=== PATIENT | female | born 2000 | race Caucasian/White ===

== ENCOUNTER → 2021-01-31 03:04 | Outpatient (CLI) | payer OTHER, SELFPAY ==
[2021-01-31 19:39] LABS: SARS-CoV-2 RNA PCR Negative
== END ==
PROVIDERS: PCP Family Medicine; Visit Provider Physician Assistant
DX: Z20.822 Contact with and (suspected) exposure to COVID-19 (principal)
CPT/HCPCS: C9803; U0003; U0005

== ENCOUNTER 2021-01-31 09:53 | Inpatient (IN) | payer OTHER, SELFPAY ==
--- NOTE | ~2021-01-31 | US_ITS ---
EXAMINATION: US renal BI DATE: 02/01/2021 07:53 INDICATION: Acute kidney injury. TECHNIQUE: Multiple ultrasound grayscale images of the kidneys were obtained. COMPARISON: CT abdomen and pelvis 01/31/2021 FINDINGS: The right kidney measures 13.1 x 6.0 x 5.0 cm. The left kidney measures 12.7 x 6.7 x 6.3 cm. The kidn eys demonstrate normal parenchymal echogenicity. There is no hydronephrosis. The bladder is normal. IMPRESSION: 1. Normal kidneys. No hydronephrosis. Reviewed, dictated and finalized at location A. CONTROL OPERATOR
--- NOTE | ~2021-01-31 | XR_ITS ---
EXAMINATION: XR chest 2V 02/01/2021 11:54 INDICATION: Renal failure PROCEDURE: 2 view chest COMPARISON: No prior studies for comparison. FINDINGS: The lungs are clear. The cardiomediastinal silhouette is within normal limits. There are no pleural effusions. There is no pneumothorax suspected. IMPRESSION: 1: NO ACUTE CARDIOPULMONARY DISEASE. Reviewed, dictated and finalized at location A. ENT RELATIONS COORDINATOR
--- NOTE | ~2021-01-31 | CT_ITS ---
EXAMINATION: CT abdomen pelvis wo con DATE: 01/31/2021 18:17 INDICATION: Kidney stone. Abdominal pain. TECHNIQUE: Computed tomography (CT) of the abdomen and pelvis was performed without intravenous contr ast. Automated exposure control and iterative reconstruction technique were employed. The dose-length product was 272.40 mGy-cm. COMPARISON: 01/10/2015 FINDINGS: Lung bases are clear. Heart size is normal. No pericardial or pleural effusion. Focal hepatic steatos is at the ligamentum teres. Gallbladder, spleen, pancreas, bilateral adrenal glands and kidneys are n ormal. Bowels including the appendix are normal. Bladder, anteverted uterus and bilateral adnexa are normal. Small amount of likely physiologic free fluid in the cul-de-sac. No abscess or free intraperi toneal gas. No pathologically enlarged abdominal or pelvic lymphadenopathy. Mild lumbosacral spondylo sis. IMPRESSION: 1. No acute intra-abdominal/pelvic process. Reviewed, dictated and finalized at location . ENT PRESSER
--- NOTE | ~2021-01-31 | US_ITS ---
EXAMINATION: US biopsy renal DATE: 02/01/2021 13:53 INDICATION: Acute kidney injury. Proteinuria. Hematuria. TECHNIQUE: The procedure including the risks, benefits, and alternatives was discussed with the patie nt. Risks discussed included bleeding and infection. The patient understood the risks and agreed to p roceed. A timeout was performed to verify the patient's name, date of , and procedure to be p erformed. The skin overlying the left kidney was prepped and draped in usual sterile fashion. Anest hetic was administered with 1% lidocaine subcutaneously. An 18 gauge core biopsy needle was then use d to obtain 6 core biopsy specimens under continuous sonographic guidance. The entry site was cleaned and dressed. There were no immediate complications. FINDINGS: Ultrasound images demonstrate the needle in the kidney. IMPRESSION: 1. Ultrasound-guided random left kidney core needle biopsy. Reviewed, dictated and finalized at location A. ARCHITECT
[2021-01-31 10:00] VITALS: BP 118/82; PULSE 88; RESP 18; TEMP 36.5; O2SAT 100
[2021-01-31 13:56] VITALS: BP 143/84; PULSE 87; RESP 17; O2SAT 99
[2021-01-31 17:32] VITALS: BP 131/78; PULSE 92; RESP 18; TEMP 36.3; O2SAT 100
[2021-01-31 18:16] LABS: Basophils Percent Auto 0.2 % (0.2-1.2); Eosinophils Absolute Auto 0.1 K/mm3 (0-0.3); Eosinophils Percent Auto 0.7 % (0-4.4); Hematocrit 39.2 % (37.0-47.0); Hemoglobin 13.5 g/dL (12.0-15.0); Immature Granulocyte Absolute 0.02 K/mm3 (0.00-0.031); Immature Granulocyte Percent A 0.2 % (0-0.5); Lymphocytes Absolute Auto 1.12 K/mm3 (0.9-3.2); Mean Corpuscular HGB Conc 34.4 g/dl (32-36); Mean Corpuscular Hemoglobin 32.1 pg (26-34); Mean Corpuscular Volume 93.1 fl (80-100); Mean Platelet Volume 10.3 fl (7.4-10.4); Monocytes Absolute Auto 0.9 K/mm3 (0.1-0.6); Monocytes Percent Auto 10.3 % (2.6-8.5); Neutrophils Absolute Auto 6.5 K/mm3 (1.3-6.7); Neutrophils Percent Auto 75.6 % (45.5-73.1); Platelet Count Result 259 k/mm3 (150-375); Red Blood Count 4.21 M/mm3 (4.2-5.4); White Blood Count 8.6 K/mm3 (4.5-10.0)
[2021-01-31 18:20] LABS: Add Urine Microscopic? YES; Appearance Urine Clear (Clear); Bilirubin Urine Negative (Negative); Blood Urine 1+ (Negative); Color Urine Straw (Yellow); Glucose Urine UA Negative (Negative); Ketones Urine Negative (Negative); Leukocyte Esterase Ur Negative LEU/UL (Negative); Mucus Urine Rare /lpf; Nitrate Urine Negative (Negative); Protein Urine 2+ mg/dL (Negative); RBC Urine 0-2 /hpf (0-2); Squamous Epithelial Cell Urine Occasional /hpf (Few); Urobilinogen Urine Negative mg/dL (<2.0); WBC Urine 0-3 /hpf
[2021-01-31 18:23] LABS: Specific Grav Ur 1.003 (1.001-1.035)
[2021-01-31] MEDS: SODIUM CHLORIDE 0.9% IV 1,000 ML 999 ML IV CONT (18:41)
[2021-01-31] MEDS: MORPHINE SULFATE (*CRX) 2 MG/ML INJ IV PUSH (20:18)
[2021-01-31] MEDS: SODIUM CHLORIDE 0.9% IV 1,000 ML 150 ML IV CONT (21:44)
[2021-01-31 21:52] LABS: Alanine Aminotransferase 16 U/L (4-35); Albumin Level 4.4 g/dL (3.7-5.6); Alkaline Phosphatase 47 U/L (45-116); Anion Gap 11 mmol/L (8-16); Aspartate Amino Transferase 27 U/L (14-36); Bilirubin,Total 1.1 mg/dL (0.2-1.3); Blood Urea Nitrogen 30 mg/dL (8-21); Calcium 9.3 mg/dL (8.9-10.7); Carbon Dioxide 23 mmol/L (22-30); Chloride 99 mmol/L (98-107); Estimated CRCL calculation 18 ml/min; Estimated Glomerular Filt Rate 12; Glucose 85 mg/dL (65-110); Potassium 3.6 mmol/L (3.4-5.0); Sodium 133 mmol/L (134-143)
[2021-01-31 22:20] LABS: Estimated CRCL calculation 19 ml/min; Estimated Glomerular Filt Rate 13
[2021-01-31 22:29] VITALS: BP 111/59; PULSE 88; RESP 16; O2SAT 100
--- NOTE | 2021-01-31 22:33 | ED.GENADULT ---
HPI - General Adult General Chief complaint: Abdominal Pain Stated complaint: acute kidney injury Time Seen by Provider: 01/31/21 17:37 Source: patient Limitations: no limitations History of Present Illness HPI narrative: 20-year-old with no major medical problems was sent by her primary doctor for acute kidney injury. Patient states that for past 2 days she is been having intermittent abdominal pain had an outpatient labs which showed elevated creatinine. She was told to go to the emergency room. Patient denied any significant nausea or vomiting or diarrhea. She denies any previous history of kidney problems. No history of kidney stones. Onset (ago): day(s) (1) Location: abdomen Radiation: non-radiation Severity: mild Quality: aching Pain Consistency: constant Relieving factors: none Related Data Allergies Allergy/AdvReac Type Severity Reaction Status Date / Time No Known Allergies Allergy Mild Verified 01/31/21 17:37 Review of Systems Review of Systems: All systems reviewed & are unremarkable except as noted in HPI and below Constitutional: Constitutional: Reports no additional constitutional complaints Eyes: Eyes: Reports no additional eye complaints ENT: Reports system reviewed and no additional complaints, except as documented Cardiovascular: Cardiovascular: Reports no additional cardiovascular complaints Respiratory: Respiratory: Reports no additional respiratory complaints Gastrointestinal: Gastrointestinal: Reports as per HPI Musculoskeletal: Musculoskeletal: Reports no additional musculoskeletal complaints Integumentary/Breasts: Skin/Breast: Reports system reviewed and no additional complaints, except as docu Neurologic: Reports system reviewed and no additional complaints, except as documented Psychiatric: Psychiatric: Reports no additional psychiatric complaints PMFSH Past Medical History Medical History Hx of pancreatitis Surgical History Surgical History No significant past surgical history Family History Family History Mother Polycystic kidney disease Grandparent Polycystic kidney disease Heart valve problem Social History Social History Smoking status: Never smoker Alcohol intake: never Substance use: never Substance use type: does not use Exam Narrative: GENERAL: Well-appearing, well-nourished, and in no acute distress. HEAD: Normocephalic, atraumatic. EYES: PERRLA and EOMI.. NECK: Supple. CHEST: Clear to auscultation. No respiratory distress. HEART: Regular rate and rhythm. No murmur heard. Normal peripheral pulses. ABDOMEN: Soft, nontender, nondistended, normal active bowel sounds. EXTREMITIES: Normal range of motion. No edema. SKIN: Warm, dry, no rash. NEURO: No focal deficits. Alert and oriented x3. PSYCH: Normal mood and affect. Course Course Emergency Course: Patient was hydrated with normal saline. Patient repeat creatinine x2 was 4.5. Discussed with Dr. Corbin will see the patient in consult. Discussed with Dr. Ramos agreed to admit the patient. Vital Signs Vital signs: Vital Signs Temperature 36.5 C 01/31/21 10:00 Pulse Rate 88 01/31/21 10:00 Respiratory Rate 18 01/31/21 10:00 Blood Pressure 118/82 01/31/21 10:00 Pulse Oximetry 100 01/31/21 10:00 Temperature 36.3 C L 01/31/21 17:32 Pulse Rate 92 01/31/21 17:32 Respiratory Rate 18 01/31/21 17:32 Blood Pressure 131/78 01/31/21 17:32 Pulse Oximetry 100 01/31/21 17:32 Medical Decision Making Vital Signs Vital Signs: Vital Signs Temperature 36.5 C 01/31/21 10:00 Pulse Rate 88 01/31/21 10:00 Respiratory Rate 18 01/31/21 10:00 Blood Pressure 118/82 01/31/21 10:00 Pulse Oximetry 100 01/31/21 10:00 Temperature 3
[2021-01-31 23:40] LABS: Creatinine Urine 57.6 mg/dL
--- NOTE | 2021-01-31 23:42 | PM.IMHP ---
H&P: HPI History of Present Illness Date/Time: 01/31/21 23:42 Chief Complaint: Abnormal lab value Narrative: This is a 20-year-old female with known significant past medical history. Patient presented to emergency room after outpatient lab work showed a creatinine of 1.9 BUN of 13 patient was advised to present to the emergency room. Repeat lab work in the emergency room showed a creatinine of 4.5 and a BUN of 30. Patient was seen and evaluated in the outpatient setting for lower abdominal pain concomitantly patient is having her menstruation. Patient has been in her usual state of health prior to these denies any shortness of breath, cough, sputum production, fevers, rigors, chills, nausea, vomiting, had 1 episode of diarrhea but states that that is common for her while having her menstruation, no hemoptysis, no epistaxis, no sinus infection, no sore throat, no ear ache ,no lower extremity swelling or any swelling, no weight loss or weight gain, patient had been taking Tylenol and ibuprofen over the weekend. In emergency room patient's vitals temp of 98? pulse of 120 blood pressure 118/476. A CT of abdomen and pelvis did not show any acute abnormalities. Decision has been made to admit the patient for further evaluation, management and treatment. Review of Systems Review of Systems: Abnormal lab work patient presented to outpatient setting due to lower abdominal pain with her period. Constitutional: Constitutional: Denies chills, Denies fatigue, Denies fever(s), Denies lethargy, Denies malaise, Denies night sweats, Denies poor appetite, Denies weakness, Denies weight gain and Denies weight loss Eyes: Eyes: Denies change in vision ENT: Denies dysphagia, Denies epistaxis, Denies nasal congestion, Denies nasal discharge, Denies nasal obstruction, Denies neck pain, Denies odynophagia, Denies sinus pain and Denies sore throat Cardiovascular: Cardiovascular: Denies syncope, Denies pedal edema, Denies edema, Denies irregular heart rhythm, Denies leg edema, Denies lightheadedness, Denies radiating jaw, neck or arm pain, Denies palpitations, Denies dyspnea on exertion, Denies orthopnea and Denies paroxysmal nocturnal dyspnea Respiratory: Respiratory: Denies chest congestion, Denies cough, Denies hemoptysis, Denies excessive phlegm production, Denies pain on inspiration, Denies dyspnea, Denies dyspnea on exertion and Denies wheezing Gastrointestinal: Gastrointestinal: Reports abdominal pain, Denies dyspepsia, Denies heartburn, Denies diarrhea, Denies nausea and Denies vomiting Genitourinary: Genitourinary: Reports no additional female genitourinary complaints and Reports as per HPI Musculoskeletal: Musculoskeletal: Denies arthralgias, Denies joint swelling and Denies muscle weakness Integumentary/Breasts: Skin/Breast: Denies non-healing lesions, Denies photosensitivity and Denies rash Neurologic: Denies dizziness, Denies focal weakness, Denies radicular pain and Denies Sensory deficit (Neuro) Psychiatric: Psychiatric: Reports no additional psychiatric complaints and Reports as per HPI Endocrine: Endocrine: Denies excessive sweating, Denies fatigue, Denies flushing, Denies increase in ring/shoe/hat size, Denies polyphagia, Denies polydipsia, Denies polyuria and Denies palpitations Hematologic/Lymphatic: Hematologic/Lymphatic: Reports no additional hematologic/lymphatic complaints and Reports as per HPI Allergic/Immunologic: Allergic/Immunologic: Reports no additional allergic/immunologic complaints and Reports as per HPI PMFSH Past Medical History Medical History Hx of pancreatitis Surgical History Surgical History No significant past surgical history Family History Family History Mother Polycystic kidney disease Grandparent Polycystic kidney disease Heart valve problem S
[2021-01-31] MEDS: SODIUM CHLORIDE 0.9% IV 1,000 ML 125 ML IV CONT (23:51)
[2021-02-01] VITALS (10 sets, daily range): BP systolic 107–129; BP diastolic 61–84; PULSE 63–83; RESP 14–21; TEMP 36.3–37.2; O2SAT 99–100
--- NOTE | 2021-02-01 01:38 | ADMGEN ---
This patient, Magaly Heredia, was admitted to Medical Room 250-01. Patient/family oriented to hospital policies and general routines including ID bracelet, bed and alarms, visiting hours, pain management, procedures, bathroom and other care routines, personal items, smoking policy, room service/diet, and visiting hours. Information on how to activate the Rapid Response Team has been discussed. Patient/Family are encouraged to report perceived risks to care and to ask questions if they do not understand what they are told or what they should do.
[2021-02-01] MEDS: ONDANSETRON INJ 4 MG/2 ML VIAL IV PUSH ×2 (02:03→11:21)
[2021-02-01] MEDS: traMADol HCL (*CRX) 50 MG TABLET PO (02:03)
[2021-02-01 04:27] LABS: Creatinine Urine 45.8 mg/dL
[2021-02-01] MEDS: SODIUM CHLORIDE 0.9% IV 1,000 ML 125 ML IV CONT ×3 (04:50→20:25)
[2021-02-01 05:21] LABS: Sodium Urine Random 35 meq/L
[2021-02-01 05:46] LABS: Anion Gap 12 mmol/L (8-16); Blood Urea Nitrogen 32 mg/dL (8-21); Calcium 8.1 mg/dL (8.9-10.7); Carbon Dioxide 16 mmol/L (22-30); Chloride 108 mmol/L (98-107); Estimated CRCL calculation 19 ml/min; Estimated Glomerular Filt Rate 13; Glucose 89 mg/dL (65-110); Potassium 3.5 mmol/L (3.4-5.0); Sodium 136 mmol/L (134-143)
[2021-02-01] MEDS: HEPARIN SODIUM 5,000 UNITS/ML VIAL 5000 UNITS SUB-Q (05:51)
--- NOTE | 2021-02-01 07:54 | PM.CNNEP ---
Assessment and Plan Assessment and plan (1) JENNIFER (acute kidney injury): Code(s): N17.9 - Acute kidney failure, unspecified Status: Acute Assessment and Plan: Sylvester has acute kidney injury. She has not been eating for the last 5 days. Her mucous membranes are a bit dry. She also had nausea vomiting diarrhea. I suspect that this might be dehydration. However her urine electrolytes are non pre renal. Her urine shows some blood but she is just getting off her menstrual period. Urinalysis shows 2+ protein. I looked at her sediment in the lab and it showed no red cell casts or casts of any kind. The red cells that I did see were few in number and were not dysmorphic. There were a few white blood cells but not many. Overall I think that this is most likely dehydration from her abdominal process, possibly a viral gastroenteritis. However the CVA tenderness is somewhat bothersome and the proteinuria with a specific gravity of only 1.003 is bothersome as well. Her creatinine did not rise between 10:00 p.m. yesterday and 5:00 a.m. today. I will repeat another creatinine morning. I will send her urine for quantitative protein. If the creatinine is higher or if the protein comes back abnormal then I think we should do a biopsy. I will go ahead and order a biopsy to be done later this morning and cancel if need be. If we do a biopsy today we will get the answer tomorrow. If we do a biopsy tomorrow it will be until Friday the earliest that we get the results back. If we do a biopsy I will also give pulse dose steroids until we get the biopsy back. However if the numbers are getting better and the patient does not have protein in the urine then I think we could hold off on the biopsy. In the meantime I will get serology and immuno fix. I do not think this has anything to do with her family history of polycystic kidneys. History of Present Illness Reason for Consult Consult date: 02/01/21 Chief Complaint Chief complaint: JENNIFER History of Present Illness Narrative: Sylvester is a very pleasant 20-year-old lady who has an elevated creatinine. She says she became sick starting on Friday. She had some epigastric pain. She also had some nausea vomiting and diarrhea. She did not eat anything since Friday. She has been drinking some fluid however. She says that as the days went on she developed some back pain in her flanks. This would be there all the time but was worse when she got out of bed after lying down for a few hours. She had some blood work done on the and the creatinine was 1.99 so she was sent to the ER. In the ER last night her creatinine was up to 4.5 so she was admitted. She had a CT scan of the abdomen which was unremarkable. There is no hydronephrosis. Her blood pressure was normal. The ER doctor felt that she was dehydrated so has given her IV fluids overnight. Today the patient feels a little bit better. She has been making urine overnight. She does not have any pain with urination. No fevers or chills. No sores in her mouth. No hair loss in clumps. No chest pain or shortness of breath. No cough or fever. She started her menstrual period on Friday and is just finishing this up now. She has a family history of polycystic kidneys. Notably the CT scan shows normal kidneys. Review of Systems Constitutional: Constitutional: Reports no additional constitutional complaints Eyes: Eyes: Reports no additional eye complaints ENT: Reports system reviewed and no additional complaints, except as documented Cardiovascular: Cardiovascular: Reports no additional cardiovascular complaints Respiratory: Respiratory: Reports no additional respiratory complaints Gastrointestinal: Gastrointestinal: Reports no additional gastrointestinal complaints Genitourinary: Genitourinary: Reports no additional female genitourinary complaints Musculoskeletal: Musculoskeletal: Reports no additional musculoskelet
[2021-02-01 09:03] LABS: Erythrocyte Sedimentation Rate 36 mm/hr (0-20)
[2021-02-01 09:23] LABS: Total Protein Urine Random 38 mg/dL
[2021-02-01 09:27] LABS: Creatinine Urine 46.4 mg/dL; Ur Ttl Prot Creatinine Ratio 0.82 mg/mg (0-0.20)
[2021-02-01 09:30] LABS: Anion Gap 16 mmol/L (8-16); Blood Urea Nitrogen 33 mg/dL (8-21); Carbon Dioxide 16 mmol/L (22-30); Chloride 108 mmol/L (98-107); Estimated CRCL calculation 19 ml/min; Estimated Glomerular Filt Rate 13; Glucose 99 mg/dL (65-110); Potassium 3.8 mmol/L (3.4-5.0); Sodium 140 mmol/L (134-143)
[2021-02-01 09:33] LABS: Sodium Urine Random 45 meq/L
[2021-02-01 09:55] LABS: HIV 1/2 Ab P24 Ag Result Negative (Negative)
[2021-02-01 10:01] LABS: CRP 3.7 mg/dL (<1.0); Creatine Kinase 52 U/L (30-135); Magnesium 2.5 mg/dL (1.6-2.3); Phosphorus 5.6 mg/dL (2.5-4.5)
[2021-02-01 10:02] LABS: Hepatitis B Surface Antigen Negative (Negative)
[2021-02-01 10:06] LABS: Hepatitis B Core IgM Result Negative (Negative)
[2021-02-01 10:07] LABS: Complement C3 129 mg/dL (88-165)
[2021-02-01 10:19] LABS: Hepatitis B Surface Anti Res Negative; Hepatitis C Virus Antibody Negative (Negative)
--- NOTE | 2021-02-01 11:03 | PM.IMPN ---
Progress Note: A&P Assessment and Plan (1) JENNIFER (acute kidney injury): Code(s): N17.9 - Acute kidney failure, unspecified Status: Acute Assessment and Plan: Patient has been having nausea, vomiting and back pain and was found to have acute kidney injury with creatinine of 2.0 by her primary care doctor. She was sent to emergency room for evaluation. Creatinine here was 4.6. It has remained stable since admission. She has developed a metabolic acidosis with a serum bicarb of 16. CRP 3.7. CT of the abdomen pelvis was normal. Renal ultrasound also was read as normal. UA does show urine protein and blood but no red cells. UPT negative. Total CK was 52. COVID, hepatitis panel and HIV all were negative. C3 and C4 levels were normal. She denies any recent streptococcal infections. Imaging is not consistent with polycystic kidney disease. Consider post streptococcal GN but no obvious prior infection symptoms. Could be interstitial process from SLE or glomerular with post-infectious or IgA nephropathy. She is having GI symptoms so consider HUS. Nephrology consulted and appreciate their input. Renal bx being considered so will hold Heparin. Check CXR. Subjective Date/time seen: 02/01/21 11:03 Interval history: 20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 She has a family hx of PCK. She has having n/v and back pain prior to admission. Still with nausea. No dysuria, hematuria or foamy urine. Voiding well. Received COVID vaccine late Spring but not had booster. Took ibupron and tylenal once a few days ago and Zofran recently as well but no other medications. Cr 1.9 by routine lab work from the PCP. Exam Narrative: AF 97.6 120/80 72 18 100% ra Gen - NARD Chest - CTA bilaterally, nml RR CV - RRR S1/S2 Abd - Soft, NT/ND, Positive BS Back - bilateral CVA tenderness Ext - No pedal edema Psych - Nml mood and affect Skin - Warm and dry Objective Data Vital Signs Vital Signs: Vital Signs - 24 hr 01/31/21 13:56 01/31/21 17:32 01/31/21 22:29 Temperature 97.4 F L Pulse Rate 87 92 88 Respiratory Rate 17 18 16 Blood Pressure 143/84 H 131/78 111/59 L Pulse Oximetry 99 100 100 02/01/21 00:00 02/01/21 01:22 02/01/21 04:00 Temperature 97.3 F L 98.5 F Pulse Rate 83 70 81 Respiratory Rate 14 18 14 Blood Pressure 125/70 129/67 107/72 Pulse Oximetry 100 100 99 02/01/21 10:30 Temperature 97.6 F Pulse Rate 72 Respiratory Rate 18 Blood Pressure 120/80 Pulse Oximetry 100 Intake/Output Intake/Output: Intake & Output 01/29/21 01/30/21 01/31/21 02/01/21 23:59 23:59 23:59 23:59 Intake Total 1400 1250 Output Total 600 Balance 1400 650 Meds/Results Medications: Active Medications Generic Name Dose Route Start Last Admin Trade Name Freq PRN Reason Stop Dose Admin Acetaminophen 650 mg 01/31/21 22:29 Acetaminophen 325 Mg Tablet PO Q4H PRN Mild Pain (1-3) or Fever Heparin Sodium (Porcine) 5,000 units 02/01/21 06:00 02/01/21 05:51 Heparin Sodium 5,000 Units/Ml Vial SUB-Q 5,000 units Q8HR MARA Administration Sodium Chloride 1,000 mls @ 125 mls/hr 01/31/21 22:30 02/01/21 04:50 Normal Saline Iv IV CONT 125 mls/hr .Q8H MARA Administration Ondansetron HCl 4 mg 01/31/21 22:29 02/01/21 02:03 Ondansetron Inj 4 Mg/2 Ml Vial IV PUSH 4 mg Q4H PRN Administration Nausea Radiology Results: ITS Impressions Abdomen/Pelvis CT 01/31/21 18:32 IMPRESSION: 1. No acute intra-abdominal/pelvic process. Renal Ultrasound 02/01/21 08:07 IMPRESSION: 1. Normal kidneys. No hydronephrosis. Labs Labs: Laboratory Results - last 24 hr 01/31/21 01/31/21 01/31/21 18:09 18:09 18:09 WBC 8.6 RBC 4.21 Hgb 13.5 Hct 39.2 MCV 93.1 MCH 32.1 MCHC 34.4 RDW 12.0 Plt Count 259 MPV 10.3 Immature Gran % (Auto) 0.2 Neut % (Auto) 75.6 H Lymph % (Auto) 13.0 L Dukes % (Aut
[2021-02-01 11:51] LABS: INR 0.9; Prothrombin Time 12.3 Seconds (11.1-14.7)
[2021-02-01] MEDS: ACETAMINOPHEN 325 MG TABLET 650 MG PO ×2 (14:20→19:49)
[2021-02-02] VITALS (7 sets, daily range): BP systolic 111–149; BP diastolic 54–94; PULSE 60–76; RESP 14–21; TEMP 36.1–36.9; O2SAT 98–100
[2021-02-02] MEDS: ACETAMINOPHEN 325 MG TABLET 650 MG PO ×2 (02:04→08:45)
[2021-02-02] MEDS: SODIUM CHLORIDE 0.9% IV 1,000 ML 125 ML IV CONT ×2 (05:11→15:56)
[2021-02-02 05:42] LABS: Basophils Percent Auto 0.4 % (0.2-1.2); Eosinophils Absolute Auto 0.1 K/mm3 (0-0.3); Eosinophils Percent Auto 2.2 % (0-4.4); Hematocrit 38.6 % (37.0-47.0); Hemoglobin 13.2 g/dL (12.0-15.0); Immature Granulocyte Absolute 0.02 K/mm3 (0.00-0.031); Immature Granulocyte Percent A 0.4 % (0-0.5); Lymphocytes Absolute Auto 1.17 K/mm3 (0.9-3.2); Lymphocytes Percent Auto 21.6 % (18.3-44.2); Mean Corpuscular HGB Conc 34.2 g/dl (32-36); Mean Corpuscular Hemoglobin 31.7 pg (26-34); Mean Corpuscular Volume 92.6 fl (80-100); Mean Platelet Volume 10.9 fl (7.4-10.4); Monocytes Absolute Auto 0.6 K/mm3 (0.1-0.6); Monocytes Percent Auto 11.8 % (2.6-8.5); Neutrophils Absolute Auto 3.5 K/mm3 (1.3-6.7); Neutrophils Percent Auto 63.6 % (45.5-73.1); Platelet Count Result 236 k/mm3 (150-375); Red Blood Count 4.17 M/mm3 (4.2-5.4); Red Cell Distribution Width 11.9 % (11.5-14.5); White Blood Count 5.4 K/mm3 (4.5-10.0)
[2021-02-02 05:53] LABS: Albumin Level 4.2 g/dL (3.7-5.6); Anion Gap 12 mmol/L (8-16); Blood Urea Nitrogen 30 mg/dL (8-21); Calcium 8.8 mg/dL (8.9-10.7); Carbon Dioxide 17 mmol/L (22-30); Chloride 111 mmol/L (98-107); Estimated CRCL calculation 20 ml/min; Estimated Glomerular Filt Rate 14; Glucose 96 mg/dL (65-110); Magnesium 2.6 mg/dL (1.6-2.3); Phosphorus 5.2 mg/dL (2.5-4.5); Potassium 3.8 mmol/L (3.4-5.0); Sodium 140 mmol/L (134-143)
[2021-02-02] MEDS: ONDANSETRON INJ 4 MG/2 ML VIAL IV PUSH (08:23)
[2021-02-02] MEDS: methylPREDNISolone SOD SUCC 1,000 MG in DEXTROSE 5% 100 ML 200 MG IVPB (09:53)
--- NOTE | 2021-02-02 11:59 | PM.PNNEP ---
Progress Note: A&P Assessment and Plan (1) JENNIFER (acute kidney injury): Code(s): N17.9 - Acute kidney failure, unspecified Status: Acute Assessment and Plan: initial presentation/history suggestive of volume depletion/dehydration poor oral intake for 5 days associated with nausea/vomiting/diarrhea no significant improvement with IVFs however, given the severity and protracted nature of dehydration, it may take longer for her to recover concerning is bilateral CVA tenderness associated with blood, protein (~ 800mg), and pyuria -- possible glomerulonephritis?? s/p renal biopsy for hopeful definitive diagnosis started on pulse dose steroids empirically serological testing pending (complements okay) hopefully some prelim biopsy results later this afternoon continue supportive therapy follow repeat labs and UOP Will continue to follow. Subjective Date/time seen: 02/02/21 11:59 Chart reviewed - assuming care from Dr. Corbin; tolerated renal biopsy yesterday but having some pain where biopsy was done; still with some intermittent nausea; renal function about the same in comparison to yesterday; reasonable urine output noted in the last 24 - 48 hours. Exam Narrative: General: WD/WN female in NAD Heart: normal S1 and S2; no rub Lungs: clear to auscultation Abdomen: soft, nondistended, positive bowel sounds; bilateral CVA pain noted Extremities: no cyanosis or clubbing; no edema Skin: warm and dry Objective Data Vital Signs Vital Signs: Vital Signs Temp Pulse Resp BP Pulse Ox 02/02/21 09:48 36.8 C 66 14 145/89 H 100 02/02/21 06:00 36.1 C L 60 21 H 142/86 H 100 02/02/21 02:00 36.9 C 76 20 111/54 L 98 02/01/21 22:00 36.8 C 70 21 H 123/83 100 02/01/21 20:00 63 14 100 02/01/21 18:10 36.6 C 63 14 123/75 100 Intake/Output Intake/Output: Intake & Output 01/30/21 01/31/21 02/01/21 02/02/21 23:59 23:59 23:59 23:59 Intake Total 1400 4240 1460 Output Total 2750 1900 Balance 1400 1490 -440 Meds/Results Medications: Active Medications Generic Name Dose Route Start Last Admin Trade Name Freq PRN Reason Stop Dose Admin Acetaminophen 650 mg 01/31/21 22:29 02/02/21 08:45 Acetaminophen 325 Mg Tablet PO 650 mg Q4H PRN Administration Mild Pain (1-3) or Fever Heparin Sodium (Porcine) 5,000 units 02/01/21 06:00 02/01/21 05:51 Heparin Sodium 5,000 Units/Ml Vial SUB-Q 5,000 units Q8HR MARA Administration Sodium Chloride 1,000 mls @ 125 mls/hr 01/31/21 22:30 02/02/21 05:11 Normal Saline Iv IV CONT 125 mls/hr .Q8H MARA Administration Methylprednisolone Sodium 100 mls @ 200 mls/hr 02/02/21 09:00 02/02/21 10:23 Succinate 1,000 mg/ Dextrose IVPB 02/04/21 09:29 Infused QAM [facility] Infusion Ondansetron HCl 4 mg 01/31/21 22:29 02/02/21 08:23 Ondansetron Inj 4 Mg/2 Ml Vial IV PUSH 4 mg Q4H PRN Administration Nausea Promethazine HCl 25 mg 02/02/21 12:39 Promethazine Hcl 25 Mg Tablet PO Q4H PRN Nausea And Vomiting Sodium Bicarbonate 650 mg 02/02/21 12:40 Sodium Bicarbonate Tab 650 Mg Tablet PO BID [facility] Radiology Results: ITS Impressions Abdomen/Pelvis CT 01/31/21 18:32 IMPRESSION: 1. No acute intra-abdominal/pelvic process. Renal Ultrasound 02/01/21 08:07 IMPRESSION: 1. Normal kidneys. No hydronephrosis. Chest X-Ray 02/01/21 11:56 IMPRESSION: 1: NO ACUTE CARDIOPULMONARY DISEASE. Renal Biopsy Ultrasound 02/01/21 13:56 IMPRESSION: 1. Ultrasound-guided random left kidney core needle biopsy. Labs Labs: Laboratory Tests 02/02/21 05:17 02/02/21 05:17
--- NOTE | 2021-02-02 12:19 | PM.IMPN ---
Progress Note: A&P Assessment and Plan (1) JENNIFER (acute kidney injury): Code(s): N17.9 - Acute kidney failure, unspecified Status: Acute Assessment and Plan: Patient has been having nausea, vomiting and back pain and was found to have acute kidney injury with creatinine of 2.0 by her primary care doctor. She was sent to emergency room for evaluation. Creatinine here was 4.6. It has remained elevated but stable since admission. CRP 3.7. CT of the abdomen pelvis was normal. Renal ultrasound also was read as normal. CXR clear. UA does show urine protein and blood but no red cells. UPT negative. Total CK was 52. COVID, hepatitis panel and HIV all were negative. C3 and C4 levels were normal. She denies any recent streptococcal infections. Imaging is not consistent with polycystic kidney disease. Consider post streptococcal GN but no obvious prior infection symptoms. Could be interstitial process from SLE or glomerular with post-infectious or IgA nephropathy. She is having GI symptoms so consider HUS. Renal bx yesterday. Renal function unchanged. She has developed a nongap metabolic acidosis with a serum bicarb of 16. Consider Proximal RTA but not Fanconi given the normal Mag and Phos. Add bicarb. Test for Wilsons. Stop IV fluids? Nephrology consulted and appreciate their input. (2) Elevated blood pressure reading: Code(s): R03.0 - Elevated blood-pressure reading, without diagnosis of hypertension Status: Acute Assessment and Plan: BP mildly elevated now felt related to the JENNIFER +/- IV fluids. Continue to monitor. (3) DVT prophylaxis: Code(s): Z29.9 - Encounter for prophylactic measures, unspecified Status: Acute Assessment and Plan: Heparin on hold - resume when okay with nephrology. SCDs Subjective Date/time seen: 02/02/21 12:20 Interval history: 20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 She has a family hx of PCK. Complains of back pain L>R (left side is where the bx was taken). The left flank pain is sharp. She is still having the nausea. Voiding well. Exam Narrative: AF 98.2 145/89 66 14 100% ra Gen - NARD Chest - CTA bilaterally, nml RR CV - RRR S1/S2 Abd - Soft, NT/ND, Positive BS Back - bilateral CVA tenderness. left biopsy site clean and dry without evidence of hematoma Ext - No pedal edema Psych - Nml mood and affect Skin - Warm and dry Objective Data Vital Signs Vital Signs: Vital Signs - 24 hr 02/01/21 13:50 02/01/21 13:51 02/01/21 14:15 Temperature 98.9 F Pulse Rate 71 72 77 Respiratory Rate 20 20 18 Blood Pressure 127/84 122/77 109/61 Pulse Oximetry 100 100 100 02/01/21 18:10 02/01/21 20:00 02/01/21 22:00 Temperature 97.9 F 98.3 F Pulse Rate 63 63 70 Respiratory Rate 14 14 21 H Blood Pressure 123/75 123/83 Pulse Oximetry 100 100 100 02/02/21 02:00 02/02/21 06:00 02/02/21 09:48 Temperature 98.5 F 97.0 F L 98.2 F Pulse Rate 76 60 66 Respiratory Rate 20 21 H 14 Blood Pressure 111/54 L 142/86 H 145/89 H Pulse Oximetry 98 100 100 Intake/Output Intake/Output: Intake & Output 01/30/21 01/31/21 02/01/21 02/02/21 23:59 23:59 23:59 23:59 Intake Total 1400 4240 1220 Output Total 2750 1600 Balance 1400 1490 -380 Meds/Results Medications: Active Medications Generic Name Dose Route Start Last Admin Trade Name Freq PRN Reason Stop Dose Admin Acetaminophen 650 mg 01/31/21 22:29 02/02/21 08:45 Acetaminophen 325 Mg Tablet PO 650 mg Q4H PRN Administration Mild Pain (1-3) or Fever Heparin Sodium (Porcine) 5,000 units 02/01/21 06:00 02/01/21 05:51 Heparin Sodium 5,000 Units/Ml Vial SUB-Q 5,000 units Q8HR MARA Administration Sodium Chloride 1,000 mls @ 125 mls/hr 01/31/21 22:30 02/02/21 05:11 Normal Saline Iv IV CONT 125 mls/hr .Q8H MARA Administration Methylprednisolone Sodium 100 mls @ 200 mls/hr 02/02/21 09:00 02/02/21 10:23 Succinate
[2021-02-02] MEDS: SODIUM BICARBONATE TAB 650 MG TABLET PO (15:57)
[2021-02-03] VITALS (7 sets, daily range): BP systolic 100–129; BP diastolic 55–77; PULSE 64–89; RESP 16–21; TEMP 36.2–36.8; O2SAT 99–100
[2021-02-03] MEDS: SODIUM CHLORIDE 0.9% IV 1,000 ML 125 ML IV CONT ×2 (02:11→15:53)
[2021-02-03 05:24] LABS: Hematocrit 34.1 % (37.0-47.0); Hemoglobin 11.7 g/dL (12.0-15.0); Mean Corpuscular HGB Conc 34.3 g/dl (32-36); Mean Corpuscular Volume 93.2 fl (80-100); Mean Platelet Volume 11.2 fl (7.4-10.4); Platelet Count Result 269 k/mm3 (150-375); Red Blood Count 3.66 M/mm3 (4.2-5.4); Red Cell Distribution Width 11.9 % (11.5-14.5); White Blood Count 7.9 K/mm3 (4.5-10.0)
[2021-02-03 05:33] LABS: Albumin Level 4.2 g/dL (3.7-5.6); Anion Gap 14 mmol/L (8-16); Blood Urea Nitrogen 21 mg/dL (8-21); Calcium 9.4 mg/dL (8.9-10.7); Carbon Dioxide 19 mmol/L (22-30); Chloride 106 mmol/L (98-107); Estimated CRCL calculation 40 ml/min; Estimated Glomerular Filt Rate 30; Glucose 140 mg/dL (65-110); Phosphorus 5.5 mg/dL (2.5-4.5); Potassium 3.7 mmol/L (3.4-5.0); Sodium 139 mmol/L (134-143)
[2021-02-03] MEDS: ONDANSETRON INJ 4 MG/2 ML VIAL IV PUSH (08:08)
[2021-02-03] MEDS: SODIUM BICARBONATE TAB 650 MG TABLET PO ×2 (08:08→18:17)
--- NOTE | 2021-02-03 09:02 | PM.IMPN ---
Progress Note: A&P Assessment and Plan (1) JENNIFER (acute kidney injury): Code(s): N17.9 - Acute kidney failure, unspecified Status: Acute Assessment and Plan: Patient has been having nausea, vomiting and back pain and was found to have acute kidney injury with creatinine of 2.0 by her primary care doctor. She was sent to emergency room for evaluation. Creatinine here was 4.6. It has remained elevated but stable since admission. CRP 3.7. CT of the abdomen pelvis was normal. Renal ultrasound also was read as normal. CXR clear. UA does show urine protein and blood but no red cells. UPT negative. Total CK was 52. COVID, hepatitis panel and HIV all were negative. C3 and C4 levels were normal. She denies any recent streptococcal infections. Imaging is not consistent with polycystic kidney disease. Consider post streptococcal GN but no obvious prior infection symptoms. Could be interstitial process from SLE or glomerular with post-infectious or IgA nephropathy. She is having GI symptoms so consider HUS. Renal bx yesterday. Renal function unchanged. She has developed a nongap metabolic acidosis with a serum bicarb of 16. Consider Proximal RTA but not Fanconi given the normal Mag and Phos. Add bicarb. Test for Wilsons. Stop IV fluids? Nephrology consulted and appreciate their input. 02/03: Creatinine down to 2.1 today from 4 continue IV fluids. Renal biopsy suggestive of ATN preliminary formal report pending (2) Elevated blood pressure reading: Code(s): R03.0 - Elevated blood-pressure reading, without diagnosis of hypertension Status: Acute Assessment and Plan: BP mildly elevated now felt related to the JENNIFER +/- IV fluids. Continue to monitor. (3) DVT prophylaxis: Code(s): Z29.9 - Encounter for prophylactic measures, unspecified Status: Acute Assessment and Plan: Heparin on hold - resume when okay with nephrology. SCDs Additional Plan Patient with no prior history of kidney disease Initial creatinine of 1.9 and BUN of 16 repeat BMP showed a creatinine of 4.6 and a BUN of 30 Patient has been having good urine output Had been taking ibuprofen Urinalysis with 2+ proteinuria Blood present but suspect contamination from menses No RBC casts, no sediment present in urine. Chemistry panel shows albumin within normal limits Total protein within normal limits CT of abdomen and pelvis with no abnormal findings Urine osmolality is pending random urine protein 300 mg/dL Urine random creatinine is a 57 Urine random sodium is pending Potassium within normal limits No metabolic acidosis No signs of uremia Appears euvolemic at physical exam Renal ultrasound in the morning Blood pressure within normal limits Patient has been making urine Continue to monitor daily intake and output Daily weights Continue to monitor BUN and creatinine If no improvement may need kidney biopsy Nephrology has been consulted Supportive care IV fluids Subjective Date/time seen: 02/03/21 09:02 Interval history: 20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 She has a family hx of PCK. Feeling better. Denies any pain. Had some nausea earlier today but improving appetite is not back but has been trying to eat more. No diarrhea Review of Systems Review of Systems: All systems reviewed & are unremarkable except as noted in HPI and below (HPI) Exam Narrative: Gen - NARD Chest - CTA bilaterally, nml RR CV - RRR S1/S2 Abd - Soft, NT/ND, Positive BS Back -left biopsy site clean and dry without evidence of hematoma Ext - No pedal edema no cyanosis or clubbing Psych - Nml mood and affect Skin - Warm and dry Objective Data Vital Signs Vital Signs: Vital Signs - 24 hr 02/02/21 09:48 02/02/21 13:58 02/02/21 18:10 Temperature 98.2 F 98.2 F 98.1 F Pulse Rate 66 69 70 Respiratory Rate 14 14 14 Blood Pressure 145/89 H 139/83 140/94 H Pulse Oximetry 100 100 100 02/02/21 2
--- NOTE | 2021-02-03 12:21 | PM.PNNEP ---
Progress Note: A&P Assessment and Plan (1) JENNIFER (acute kidney injury): Code(s): N17.9 - Acute kidney failure, unspecified Status: Acute Assessment and Plan: due to acute tubular necrosis (biopsy proven) initial presentation/history suggestive of volume depletion/dehydration poor oral intake for 5 days associated with nausea/vomiting/diarrhea no significant improvement with IVFs however, given the severity and protracted nature of dehydration, it may take longer for her to recover concern was bilateral CVA tenderness associated with blood, protein (~ 800mg), and pyuria -- possible glomerulonephritis?? s/p renal biopsy for definitive diagnosis as noted above continue supportive therapy - probably okay to d/c sodium bicarbonate on discharge will wean off IVFs today follow repeat labs and UOP Will continue to follow - would not be opposed to discharge tomorrow if able to eat/drink okay and appetite is better/back to baseline. Subjective Date/time seen: 02/03/21 12:21 Overall feeling a bit better; appetite is slowly improving but still not completely back to baseline; no complaints of pain at the time of my visit; creatinine/renal function has improved by AM labs; continue to make good urine output; no issues/events overnight or earlier this morning; mother at bedside and we discussed the situation with the patient participating as well. Exam Narrative: General: WD/WN female in NAD Heart: normal S1 and S2; no rub Lungs: clear to auscultation Abdomen: soft, nondistended, positive bowel sounds Extremities: no cyanosis or clubbing; no edema Skin: warm and intact Objective Data Vital Signs Vital Signs: Vital Signs Temp Pulse Resp BP Pulse Ox 02/03/21 10:00 36.6 C 70 18 113/70 99 02/03/21 06:00 36.4 C L 69 21 H 129/77 100 02/02/21 22:00 36.9 C 61 20 149/84 H 99 02/02/21 20:00 70 14 100 02/02/21 18:10 36.7 C 70 14 140/94 H 100 Intake/Output Intake/Output: Intake & Output 01/31/21 02/01/21 02/02/21 02/03/21 23:59 23:59 23:59 23:59 Intake Total 1400 4240 4380 2210 Output Total 2750 5750 750 Balance 1400 1490 -1370 1460 Meds/Results Medications: Active Medications Generic Name Dose Route Start Last Admin Trade Name Freq PRN Reason Stop Dose Admin Acetaminophen 650 mg 01/31/21 22:29 02/02/21 08:45 Acetaminophen 325 Mg Tablet PO 650 mg Q4H PRN Administration Mild Pain (1-3) or Fever Heparin Sodium (Porcine) 5,000 units 02/01/21 06:00 02/01/21 05:51 Heparin Sodium 5,000 Units/Ml Vial SUB-Q 5,000 units Q8HR MARA Administration Sodium Chloride 1,000 mls @ 75 mls/hr 01/31/21 22:30 02/03/21 15:53 Normal Saline Iv IV CONT 125 mls/hr .[id number] MARA Administration Ondansetron HCl 4 mg 01/31/21 22:29 02/03/21 08:08 Ondansetron Inj 4 Mg/2 Ml Vial IV PUSH 4 mg Q4H PRN Administration Nausea Promethazine HCl 25 mg 02/02/21 12:39 Promethazine Hcl 25 Mg Tablet PO Q4H PRN Nausea And Vomiting Sodium Bicarbonate 650 mg 02/02/21 12:40 02/03/21 08:08 Sodium Bicarbonate Tab 650 Mg Tablet PO 650 mg BID MARA Administration Radiology Results: ITS Impressions Abdomen/Pelvis CT 01/31/21 18:32 IMPRESSION: 1. No acute intra-abdominal/pelvic process. Renal Ultrasound 02/01/21 08:07 IMPRESSION: 1. Normal kidneys. No hydronephrosis. Chest X-Ray 02/01/21 11:56 IMPRESSION: 1: NO ACUTE CARDIOPULMONARY DISEASE. Renal Biopsy Ultrasound 02/01/21 13:56 IMPRESSION: 1. Ultrasound-guided random left kidney core needle biopsy. Labs Labs: Laboratory Tests 02/03/21 04:37 02/03/21 04:37
[2021-02-04 04:09] VITALS: BP 102/71; PULSE 58; RESP 16; TEMP 36.6; O2SAT 100
[2021-02-04 05:35] LABS: Anion Gap 10 mmol/L (8-16); Blood Urea Nitrogen 21 mg/dL (8-21); Calcium 8.8 mg/dL (8.9-10.7); Carbon Dioxide 22 mmol/L (22-30); Chloride 110 mmol/L (98-107); Estimated CRCL calculation 49 ml/min; Estimated Glomerular Filt Rate 39; Glucose 97 mg/dL (65-110); Potassium 3.2 mmol/L (3.4-5.0); Sodium 142 mmol/L (134-143)
[2021-02-04 05:51] LABS: Basophils Percent Auto 0.4 % (0.2-1.2); Eosinophils Absolute Auto 0.1 K/mm3 (0-0.3); Eosinophils Percent Auto 0.9 % (0-4.4); Hematocrit 32.1 % (37.0-47.0); Hemoglobin 10.9 g/dL (12.0-15.0); Immature Granulocyte Absolute 0.03 K/mm3 (0.00-0.031); Immature Granulocyte Percent A 0.4 % (0-0.5); Lymphocytes Absolute Auto 2.21 K/mm3 (0.9-3.2); Lymphocytes Percent Auto 25.8 % (18.3-44.2); Mean Corpuscular Hemoglobin 31.5 pg (26-34); Mean Corpuscular Volume 92.8 fl (80-100); Mean Platelet Volume 11.5 fl (7.4-10.4); Monocytes Absolute Auto 0.8 K/mm3 (0.1-0.6); Monocytes Percent Auto 9.2 % (2.6-8.5); Neutrophils Absolute Auto 5.4 K/mm3 (1.3-6.7); Neutrophils Percent Auto 63.3 % (45.5-73.1); Platelet Count Result 247 k/mm3 (150-375); Red Blood Count 3.46 M/mm3 (4.2-5.4); Red Cell Distribution Width 12.1 % (11.5-14.5); White Blood Count 8.6 K/mm3 (4.5-10.0)
[2021-02-04] MEDS: POTASSIUM CHLORIDE 20 MEQ TABLET 40 MEQ PO (08:42)
--- NOTE | 2021-02-04 09:09 | PM.DS ---
DS: Admitting Diagnosis Discharge Date 02/04/2021 Admitting Diagnosis acute renal failure DS: Discharge Diagnosis Discharge Diagnosis (1) JENNIFER (acute kidney injury): Code(s): N17.9 - Acute kidney failure, unspecified Status: Acute Assessment and Plan: Patient present with nausea, vomiting and back pain and was found to have acute kidney injury with creatinine of 2.0 by her primary care doctor. She was sent to emergency room for evaluation. Creatinine on arrival to the ER was 4.6. It has remained elevated but stable since admission. CRP 3.7. CT of the abdomen pelvis was normal. Renal ultrasound also was read as normal without signs of any obstruction. CXR clear. UA does show urine protein and blood but no red cells. UPT negative. Total CK was 52. COVID, hepatitis panel and HIV all were negative. C3 and C4 levels were normal. She denies any recent streptococcal infections. Imaging is not consistent with polycystic kidney disease As she has family history of adult onset polycystic kidney disease. considered post streptococcal GN but no obvious prior infection symptoms. Could be interstitial process from SLE or glomerular with post-infectious or IgA nephropathy. workup labs has been ordered however has pending at the time of discharge. She is having GI symptoms so Considered HUS. she ultimately underwent renal biopsy on 02/01/2021 for further evaluation. A renal biopsy was suggestive of acute tubular necrosis. She Also has developed a nongap metabolic acidosis with a serum bicarb of 16 for which bicarb supplement was added. Consider Proximal RTA but not Fanconi given the normal Mag and Phos. Test for Wilsons. Stop IV fluids? Nephrology consulted and appreciate their input. with continued hydration her renal function continue to improve with a peak of 4 and was down to 1.7 by the time of discharge. She was eating and drinking well without any obvious nausea or GI symptoms. She will be discharged home with outpatient evaluation in 1 week. I will order CBC and a BMP in a week to follow up with her primary care doctor. formal biopsy report is pending at the time of discharge (2) Elevated blood pressure reading: Code(s): R03.0 - Elevated blood-pressure reading, without diagnosis of hypertension Status: Acute Assessment and Plan: BP mildly elevated now felt related to the JENNIFER +/- IV fluids. Continue to monitor. this has resolved (3) DVT prophylaxis: Code(s): Z29.9 - Encounter for prophylactic measures, unspecified Status: Acute Assessment and Plan: Heparin / SCDs DS: Summary Hospital Course Hospital Course: see above Time Spent with Patient Time attestation: Total time spent providing and/or coordinating discharge services: 40 minutes Exam Narrative: Gen - NARD Chest - CTA bilaterally, nml RR CV - RRR S1/S2 Abd - Soft, NT/ND, Positive BS Back -left biopsy site clean and dry without evidence of hematoma Ext - No pedal edema no cyanosis or clubbing Psych - Nml mood and affect Skin - Warm and dry DS: Data Data Completed and Pending Labs on day of discharge: Labs from last 24 hours 02/04/21 02/04/21 02/03/21 04:46 04:46 08:13 WBC 8.6 RBC 3.46 L Hgb 10.9 L Hct 32.1 L MCV 92.8 MCH 31.5 MCHC 34.0 RDW 12.1 Plt Count 247 MPV 11.5 H Immature Gran % (Auto) 0.4 Neut % (Auto) 63.3 Lymph % (Auto) 25.8 Cavalier % (Auto) 9.2 H Eos % (Auto) 0.9 Baso % (Auto) 0.4 Lymph # (Auto) 2.21 Cavalier # (Auto) 0.8 H Eos # (Auto) 0.1 Baso # (Auto) 0.0 Abs Immat Gran (auto) 0.03 Absolute Neuts (auto) 5.4 Absolute Nucleated RBC 0.0 Nucleated RBC % 0.0 Sodium 142 Potassium 3.2 L Chloride 110 H Carbon Dioxide 22 Anion Gap 10 BUN 21 Creatinine 1.70 H Estim Creat Clear Calc 49 Estimated GFR 39 L Glucose 97 Calcium 8.8 L U Protein 24 Hr Presump Pending Ur NARENDRA Int
[2021-02-04 10:55] VITALS: BP 127/80; PULSE 62; RESP 12; TEMP 36.6; O2SAT 99
[2021-02-04 22:55] LABS: Osmolality, Urine 145 mOsm/kg (50-1200)
[2021-02-05 06:52] LABS: Kappa\\Lambda Light Chains 1.38 (0.26-1.65); Lambda Light Chain 9.7 mg/L (5.7-26.3)
[2021-02-05 12:41] LABS: Anti Streptolysin O Screen 59 IU/mL (<250)
[2021-02-06 10:42] LABS: Anti Glomerular Basement Memb <1.0 AI (<1.0)
[2021-02-06 12:41] LABS: SM Antibody <1.0; SM/RNP Antibody <1.0
[2021-02-06 15:59] LABS: Complement Total CH50 >60 U/mL (31-60)
[2021-02-06 21:34] LABS: Ceruloplasmin 30 mg/dL (18-53)
[2021-02-08 12:25] LABS: ANCA Screen Negative (Negative)
[2021-02-08 14:39] LABS: Albumin 63 %; Creat 24 Hr 2.35 g/24 h (0.50-2.15); Measured Kappa Chains <1.00 mg/dL (<2.00); Measured Lambda Chains <1.00 mg/dL (<2.00); Pro/Creat Ratio 194 mg/g creat (<=114)
[2021-02-08 15:10] LABS: Protein,total, 24 Hr Ur 380 mg/24h
== END 2021-02-04 11:40 | disposition home or self-care (01) | DRG 684 ==
LOC: ANHED 22:36 → ANH2MED 02-01 09:36
PROVIDERS: Internal Medicine; Internal Medicine Nephrology; Admitting Provider Internal Medicine; Emergency Provider Family Medicine; PCP Family Medicine; Visit Provider Internal Medicine
DX: N17.0 Acute kidney failure with tubular necrosis (principal); R03.0 Elevated blood-pressure reading, without diagnosis of hypertension; Z20.822 Contact with and (suspected) exposure to COVID-19; Z23 Encounter for immunization
CPT/HCPCS: 36415; 50200; 71046; 74176; 76775; 76942; 80048; 80053; 80069; 81001; 81025; 82390; 82550; 82570; 83520; 83735; 83883; 83935; 84100; 84156; 84300; 85025; 85027; 85610; 85652; 85730; 86021; 86038; 86060; 86140; 86160; 86162; 86215; 86225; 86235; 86334; 86335; 86703; 86705; 86706; 86803; 87340; 88300; 88305; 88313; 88329; 88346; 88348; 88350; 90471; 90653; 96361; 96374; 99285; A9270; G0008; G0432; J1644; J2270; J2405; J2930; J7030